=== PATIENT | female | born 1980 | race African-American/Black ===

== ENCOUNTER 2017-04-01 15:56 | Inpatient (IN) | payer MEDICAID, OTHER ==
[~2017-04-01] VITALS: Ht 167.6 cm; Wt 73.5 kg
--- NOTE | 2017-04-01 16:15 | NUR ---
CALLED PATIENT TO TRIAGE ROOM, PATIENT IS NOT IN ED WAITING ROOM.
--- NOTE | 2017-04-01 16:25 | NUR ---
PRESENTS SELF TO ED DUE TO ABDOMINAL PAIN, 03/16, NON RADIATING SINCE THIS AM. PT REPORTED VOMITTING 6-7 DAYS TODAY. APPEARS IN NO APPARENT DISTRESS, RESPIRATION EVEN AND UNLABORED. SKIN IS WARM TO TOUCH AND NON DIAPHORETIC. PATIENT IS AFEBRILE. VSS
[2017-04-01] MEDS ORDERED: ONDANSETRON HCL/PF 4 MG/2 ML VIAL ONE (17:21)
[2017-04-01] MEDS ORDERED: IV NS 0.9% 2,000 ML ONE (17:21)
[2017-04-01 17:30] LABS: BASOPHILS # (AUTO) 0.2 /CMM (0.0-0.2); BASOPHILS % (AUTO) 1.1 % (0.0-2.0); HEMATOCRIT 38 % (33-45); HEMOGLOBIN 12.8 g/dL (11.5-14.8); LYMPHOCYTES # (AUTO) 0.4 /CMM (0.8-4.8); LYMPHOCYTES % (AUTO) 2.8 % (20.0-44.0); MEAN CORPUSCULAR HEMOGLOBIN 31 PG (26.0-33.0); MEAN CORPUSCULAR HGB CONC 34 g/dl (31.0-36.0); MEAN CORPUSCULAR VOLUME 92 fL (82-100); MONOCYTES # (AUTO) 0.2 /CMM (0.1-1.30); MONOCYTES % (AUTO) 1.5 % (2.0-12.0); NEUTROPHILS # (AUTO) 13.4 /CMM (1.8-8.9); NEUTROPHILS % (AUTO) 94.6 % (43.0-81.0); PLATELET COUNT (AUTO) 300 /CMM (150-450); RDW COEFFICIENT OF VARIATION 13.4 (11.5-15.0); RED BLOOD CELL COUNT(AUTO) 4.07 MIL/uL (4.0-5.2); WHITE BLOOD COUNT (AUTO) 14.1 K/uL (4.3-11.0)
[2017-04-01] MEDS ORDERED: ONDANSETRON HCL/PF 4 MG/2 ML VIAL IVP ONE (17:30)
[2017-04-01] MEDS ORDERED: IV NS 0.9% 1,000 ML BAG IV ONE (17:30)
[2017-04-01 17:33] LABS: APPEARANCE,URINE SL CLOUDY (CLEAR); BILIRUBIN,URINE NEGATIVE (NEGATIVE); BLOOD, URINE 1+ Ery/uL (NEGATIVE); COLOR,URINE YELLOW (YELLOW); KETONES,URINE 3+ (NEGATIVE); LEUKOCYTE ESTERASE ,URINE NEGATIVE (NEGATIVE); NITRITE, URINE NEGATIVE (NEGATIVE); PROTEIN,URINE TRACE mg/dl (NEGATIVE); UGLUCOSE NEGATIVE (NEGATIVE); UROBILINOGEN,URINE 0.2 EU/dL (0.2)
--- NOTE | 2017-04-01 17:33 | NUR ---
MEDICATED PT ORDERED
[2017-04-01 17:46] LABS: PREGNANCY TEST URINE QUAL NEGATIVE (NEGATIVE)
[2017-04-01 17:47] LABS: BACTERIA,URINE Few /HPF (None Seen); SQUAMOUS EPITHELIAL CELL,UR Few /HPF (None Seen); WBC,URINE 0-2 /HPF (0-3)
[2017-04-01] MEDS ORDERED: BARIUM SULFATE SUSP 450 ML BOTTLE PO ONE (17:53)
--- NOTE | 2017-04-01 18:01 | NUR ---
ORAL CONTRAST PROVIDED
[2017-04-01 18:06] LABS: ALBUMIN 4.2 g/dL (3.4-5.0); BILIRUBIN,DIRECT 0.2 mg/dL (0.0-0.2); BILIRUBIN,TOTAL 1.2 mg/dL (0.2-1.0); CALCIUM, SERUM 8.7 mg/dL (8.5-10.1); CREATININE 0.6 mg/dL (0.6-1.3); TOTAL PROTEIN, SERUM 7.9 g/dL (6.4-8.2)
[2017-04-01 18:18] LABS: POTASSIUM 3.8 mmol/L (3.5-5.1)
--- NOTE | 2017-04-01 19:37 | NUR ---
REPORT GIVEN TO CHIDI LEZAMA
[2017-04-01] MEDS ORDERED: IV D5/0.45 NACL 1,000 ML IV ONE ×2 (20:00→20:11)
[2017-04-01] MEDS ORDERED: PIPERACILLIN /TAZOBACTAM 3.375 G in IV D5W 50 ML IV ONE (20:00)
[2017-04-01] MEDS ORDERED: IV SET PRIMARY 1 EA INFUS.SET MC ONE (20:09)
[2017-04-01] MEDS ORDERED: IV SET PRIMARY PUMP SET 1 EA INFUS.SET MC ONE ×2 (20:12→23:44)
--- NOTE | 2017-04-01 20:24 | NUR ---
REPORT GIVEN TO KRISTYN/RN AT THIS TIME.
--- NOTE | 2017-04-01 20:25 | NUR ---
FLATBED DRIVER NOTE RECEIVED PATIENT FROM ER, PATIENT IS ALERT AND ORIENTEDX3, AMBULATORY, NO S/S OF RESPIRATORY DISTRESS, COMPLAINS OF MILD ABDOMINAL PAIN, SCHEDULED FOR URGENT LAPAROSCOPY APPENDECTOMY BY DR. ARGUETA. IV ON LEFT HAND 20G IS PATENT AND INTACT. SKIN IS INTACT, NO EDEMA PRESENT. WILL CONNECT TO TELE MONITOR WHEN SHE COMES BACK FROM THE SURGERY. SRX2, BED IN LOW POSITION, CALL LIGHT WITHIN REACH, WILL CONTINUE TO MONITOR PATIENT.
[2017-04-01] MEDS ORDERED: ROCURONIUM BROMIDE 50 MG/5 ML ONE (20:32)
[2017-04-01] MEDS ORDERED: FENTANYL PF 100MCG/2ML AMPUL ONE (20:32)
[2017-04-01] MEDS ORDERED: MIDAZOLAM HCL 2 MG/2ML VIAL ONE (20:32)
[2017-04-01] MEDS ORDERED: SECONDARY IV SET 1 EA INFUS.SET MC ONE (20:34)
[2017-04-01] MEDS ORDERED: BUPIVACAINE MPF W/EPI 0.25% 30 ML VIAL ONE (20:44)
--- NOTE | 2017-04-01 20:55 | NUR ---
PRODUCT SUPPORT MANAGER NOTE PATIENT WENT DOWN TO OR FOR THE PROCEDURE ACCOMPANIED BY HER FRIENDS. CONSENT AND CHECKLIST COMPLETED, V/S WNL.
[2017-04-01] MEDS ORDERED: Z GUARD REMEDY 2 OZ OINT TP PRN (22:00)
[2017-04-01] MEDS ORDERED: ACETAMINOPHEN 325 MG TABLET PO PRN (22:00)
[2017-04-01] MEDS ORDERED: ZOLPIDEM TARTRATE 5 MG TABLET PO PRN (22:00)
[2017-04-01] MEDS ORDERED: MAGNESIUM HYDROXIDE 30 ML UDC PO PRN (22:00)
[2017-04-01] MEDS ORDERED: ONDANSETRON HCL/PF 4 MG/2 ML VIAL IVP PRN (22:00)
[2017-04-01] MEDS ORDERED: MAG HYDROX/AL HYDROX/SIMETH 30 ML UDC PO PRN (22:00)
--- NOTE | 2017-04-01 23:15 | NUR ---
CHIEF CLOTH FINISHING RANGE OPERATOR NOTE PATIENT WENT UP AFTER THE PROCEDURE, HAD POST OP RESPIRATORY DISTRESS, GOT AN ORDER OF TELE MONITOR AND CONTINUOUS PULSE OX. VS 100/67, PULSE 90, O2 100% WITH 4 L/MIN NC. ACKNOWLEDGED POST OP ORDER, PUT THEM IN A SYSTEM. WILL CONTINUE TO MONITOR HER RESPIRATORY SYMPTOMS.
[2017-04-02] MEDS ORDERED: IV LR 1000 ML 1,000 ML ONE (03:33)
[2017-04-02] MEDS: IV LR 1000 ML 1,000 ML IV PRN (03:38)
[2017-04-02] MEDS ORDERED: MORPHINE SULFATE INJ 2 MG/ML DISP.SYRIN ONE (03:54)
[2017-04-02] MEDS: MORPHINE SULFATE INJ 2 MG/ML DISP.SYRIN IV PRN ×3 (04:06→16:06)
--- NOTE | 2017-04-02 06:54 | NUR ---
LOADING UNIT TOOL SETTER NOTE PATIENT IS RESTING IN BED COMFORTABLY, STATED THAT SHE FEELS BETTER NOW, BUT STILL COMPLAINS OF SORENESS ON HER ABDOMEN. BREATHING NON-LABORED, SATTING 96%-97% WITH 3L/MIN OF NC OXYGEN. IV ON LEFT HAND IS PATENT AND INTACT, LR IS RUNNING. TELE MONITOR SR 91. WILL ENDORSE TO DAY SHIFT NURSE FOR MARYLU.
[2017-04-02 07:21] LABS: HEMATOCRIT 32 % (33-45); LYMPHOCYTES # (AUTO) 0.8 /CMM (0.8-4.8); LYMPHOCYTES % (AUTO) 5.1 % (20.0-44.0); MEAN CORPUSCULAR HEMOGLOBIN 32 PG (26.0-33.0); MEAN CORPUSCULAR HGB CONC 34 g/dl (31.0-36.0); MEAN CORPUSCULAR VOLUME 93 fL (82-100); MONOCYTES # (AUTO) 0.7 /CMM (0.1-1.30); MONOCYTES % (AUTO) 4.7 % (2.0-12.0); NEUTROPHILS # (AUTO) 14.2 /CMM (1.8-8.9); NEUTROPHILS % (AUTO) 90.2 % (43.0-81.0); PLATELET COUNT (AUTO) 243 /CMM (150-450); RDW COEFFICIENT OF VARIATION 13.3 (11.5-15.0); RED BLOOD CELL COUNT(AUTO) 3.42 MIL/uL (4.0-5.2); WHITE BLOOD COUNT (AUTO) 15.7 K/uL (4.3-11.0)
[2017-04-02 07:51] LABS: CALCIUM, SERUM 7.8 mg/dL (8.5-10.1); CREATININE 0.5 mg/dL (0.6-1.3); MAGNESIUM 1.9 mg/dL (1.8-2.4); PHOSPHORUS 2.6 mg/dL (2.5-4.9); POTASSIUM 3.6 mmol/L (3.5-5.1)
[2017-04-02 08:00] VITALS: BP_SYST 102; BP_SYST 141; BP_DIAS 57; BP_DIAS 82
[2017-04-02] MEDS ORDERED: NALOXONE HCL 0.4 MG/ML AMPUL IV STA (08:25)
[2017-04-02 12:00] VITALS: BP 135/74
[2017-04-02] MEDS ORDERED: GUAIFENESIN 300 MG/15 ML UDC PO PRN (13:30)
[2017-04-02] MEDS ORDERED: AZITHROMYCIN 250 MG TABLET PO ONE (13:30)
[2017-04-02] MEDS: HYDROCODONE/APAP 5/325MG 1 EACH TABLET PO PRN (13:46)
--- NOTE | 2017-04-02 15:24 | NUR ---
wood turner notes care transferred by Donal, patient in bed, comfortable, no SOB or distress noted, no complaint of pain or discomfort. Talking to friend at bedside. Will continue to monitor accordingly.
[2017-04-02 16:00] VITALS: BP 114/70
--- NOTE | 2017-04-02 19:21 | NUR ---
journey lineman closing notes All needs provided, attended, and anticipated. kept patient clean and comfortable in bed, call light with in patient reach, will continue to monitor. Endorsed to next shift to continue care. On tele monitor SR heart rate of 94, no complaint of pain or discomfort noted.
--- NOTE | 2017-04-02 19:45 | NUR ---
MODEL ENGINE MECHANIC NOTE RECEIVED PATIENT FROM DAY SHIFT, PATIENT IS ALERT AND ORIENTEDX4, DENIES RESPIRATORY DISTRESS STATING SHE FEELS BETTER, NO COMPLAINS OF PAIN NOTED WELL. GETTING OXYGEN 2L/MIN VIA NC. IV ON LEFT HAND IS PATENT AND INTACT, FLUID IS RUNNING. TELE MONITOR SR88. SRX2, BED IN LOW POSITION, CALL LIGHT WITHIN REACH, WILL CONTINUE TO MONITOR PATIENT.
[2017-04-02 20:00] VITALS: BP 114/75
[2017-04-03] VITALS: BP 110/71
[2017-04-03] MEDS: IV LR 1000 ML 1,000 ML IV PRN (00:05)
--- NOTE | 2017-04-03 00:05 | NUR ---
SAFETY LEAD NOTE DR. ARGUETA CLEARED HER TO DC TODAY. [employer] SALES REPRESENTATIVE MADE AWARE OF WELL.
[2017-04-03 04:00] VITALS: BP 115/72
[2017-04-03] MEDS: HYDROCODONE/APAP 5/325MG 1 EACH TABLET PO PRN ×2 (05:42→14:00)
[2017-04-03 06:50] VITALS: BP 106/67
--- NOTE | 2017-04-03 06:55 | NUR ---
ALUMINUM BOATS ASSEMBLER NOTE PATIENT IS RESTING IN BED COMFORTABLY, NO S/S OF RESPIRATORY DISTRESS OR PAIN PRESENT. IV ON LEFT HAND IS PATENT AND INTACT, FLUID IS RUNNING. TELE MONITOR SR 64. WILL ENDORSE TO DAY SHIFT FOR MARYLU.
[2017-04-03 08:00] VITALS: BP 106/67
--- NOTE | 2017-04-03 08:10 | NUR ---
RN OPENING NOTES RECEIVED PATIENT ON BED SLEEPING, AROUSES EASILY. ALERT AND ORIENTED X3. NO RESPIRATORY DISTRESS, DENIES ANY PAIN AND DISCOMFORT. IV SITE INTACT AND PATENT. BED IN LOW POSITION, HEAD OF BED ELEVATED. CALL LIGHT WITHIN REACH. WILL CONTINUE TO MONITOR
[2017-04-03 09:32] LABS: BASOPHILS % (AUTO) 0.1 % (0.0-2.0); EOSINOPHILS # (AUTO) 0.1 /CMM (0.0-0.7); EOSINOPHILS % (AUTO) 0.7 % (0.0-6.0); HEMATOCRIT 34 % (33-45); HEMOGLOBIN 11.6 g/dL (11.5-14.8); LYMPHOCYTES # (AUTO) 1.2 /CMM (0.8-4.8); LYMPHOCYTES % (AUTO) 13.7 % (20.0-44.0); MEAN CORPUSCULAR HEMOGLOBIN 32 PG (26.0-33.0); MEAN CORPUSCULAR HGB CONC 34 g/dl (31.0-36.0); MEAN CORPUSCULAR VOLUME 93 fL (82-100); MONOCYTES # (AUTO) 0.5 /CMM (0.1-1.30); MONOCYTES % (AUTO) 5.7 % (2.0-12.0); NEUTROPHILS # (AUTO) 7.1 /CMM (1.8-8.9); NEUTROPHILS % (AUTO) 79.8 % (43.0-81.0); PLATELET COUNT (AUTO) 255 /CMM (150-450); RDW COEFFICIENT OF VARIATION 13.5 (11.5-15.0); RED BLOOD CELL COUNT(AUTO) 3.69 MIL/uL (4.0-5.2); WHITE BLOOD COUNT (AUTO) 8.9 K/uL (4.3-11.0)
[2017-04-03 09:47] LABS: CALCIUM, SERUM 8.1 mg/dL (8.5-10.1); CREATININE 0.5 mg/dL (0.6-1.3); MAGNESIUM 2.2 mg/dL (1.8-2.4); PHOSPHORUS 2.4 mg/dL (2.5-4.9); POTASSIUM 3.7 mmol/L (3.5-5.1)
[2017-04-03] MEDS ORDERED: ACET325T53 PO (11:55)
[2017-04-03] MEDS ORDERED: AZITHROMYCIN 250 MG TABLET PO SCH (13:30)
[2017-04-03 16:00] VITALS: BP 103/64
--- NOTE | 2017-04-03 16:00 | NUR ---
PATIENT REPORTED THAT HER UVULA BEING ''WIERD'', "FEELS LIKE I CAN SWALLOW IT AND HANGING LOOSELY". DR MACHELLE LAKHANI MADE AWARE. PER DR MACHELLE LAKHANI, PATIENT CAN GO TO OUTPATIENT CLINIC.
[2017-04-03 16:01] VITALS: BP 103/64
--- NOTE | 2017-04-03 16:20 | NUR ---
PATIENT DISCHARGE ACCOMPANIED BY BOYFRIEND. PATIENT STABLE VITAL SIGNS. NO ACUTE DISTRESS NOTED. DISCHARGE TEACHING AND INSTRUCTIONS DONE.
[2017-04-03] MEDS ORDERED: K PHOS NEUTRAL 250 MG TABLET PO ONE (16:30)
== END 2017-04-03 17:50 | disposition home or self-care (01) | DRG 225 ==
LOC: ER 15:59 → TELE 20:03 → MED 22:02 → TELE 04-02 09:09 → MED 04-03 09:05
PROVIDERS: ADMIT Family Medicine; ATTEND Family Medicine
PROC: 0DTJ4ZZ Resection of Appendix, Percutaneous Endoscopic Approach (ICD-10-PCS; principal; 2017-04-01 20:45)
DX: K35.80 Unspecified acute appendicitis (principal); J18.9 Pneumonia, unspecified organism; D72.829 Elevated white blood cell count, unspecified; R73.9 Hyperglycemia, unspecified; Z83.3 Family history of diabetes mellitus
CPT/HCPCS: 36415; 71010-TC; 80048-TC; 80061-TC; 80076-TC; 81000-TC; 83690-TC; 83735-TC; 84100-TC; 84703-TC; 85025-TC; 87081-TC; 88304-TC; 88305-TC; 94799-TC; A4606; J1100; J2250; J2270; J2405; J2543; J2704; J2710; J3010; J3490; J7030; J7060; J7120; Z7610